=== PATIENT | female | born 1950 | race Caucasian/White ===

== ENCOUNTER 2022-03-22 20:22 | Inpatient (IN) | payer MEDICARE, OTHER ==
[~2022-03-22] VITALS: Ht 172.7 cm; Wt 63.5 kg
--- NOTE | 2022-03-22 20:53 | NUR ---
BIBDAUGHTER FOR MEDICALCLEARANCE FROM FACILITY "FOR VERBALLY AND PHYSICALLY BEING AGRESSIVE". PT AOX2/3. TOLERATING R/A WELL WITH NO RESP DISTRESS. SAFETY MEASURES IN PLACE. 1:1 SITTER AT PT'S BEDSIDE.
--- NOTE | 2022-03-22 21:00 | NUR ---
COVID SWAB COLLECTED AND SENT TO LAB
--- NOTE | 2022-03-22 21:10 | NUR ---
URINE COLLECTED AND SENT TO LAB
--- NOTE | 2022-03-22 21:25 | NUR ---
LARRY CAR OPERATOR AT PT'S BEDSIDE
[2022-03-22 21:42] LABS: BASOPHILS # (AUTO) 0.1 K/uL (0.0-0.2); BASOPHILS % (AUTO) 0.8 % (0.0-2.0); EOSINOPHILS % (AUTO) 3.9 % (0.0-6.0); HEMATOCRIT 45 % (33-45); HEMOGLOBIN 14.7 g/dL (11.5-14.8); LYMPHOCYTES # (AUTO) 1.3 K/uL (0.8-4.8); LYMPHOCYTES % (AUTO) 19.1 % (20.0-44.0); MEAN CORPUSCULAR HGB CONC 33 g/dl (31.0-36.0); MEAN CORPUSCULAR VOLUME 96 fL (82-100); MONOCYTES # (AUTO) 0.6 K/uL (0.1-1.30); MONOCYTES % (AUTO) 8.5 % (2.0-12.0); NEUTROPHILS # (AUTO) 4.5 K/uL (1.8-8.9); NEUTROPHILS % (AUTO) 67.7 % (43.0-81.0); PLATELET COUNT (AUTO) 251 K/uL (150-450); RED BLOOD CELL COUNT(AUTO) 4.68 MIL/uL (4.0-5.2); WHITE BLOOD COUNT (AUTO) 6.6 K/uL (4.3-11.0)
[2022-03-22 21:50] LABS: BILIRUBIN,URINE NEGATIVE (NEGATIVE); COLOR,URINE YELLOW (YELLOW); LEUKOCYTE ESTERASE ,URINE NEGATIVE (NEGATIVE); NITRITE, URINE NEGATIVE (NEGATIVE); PROTEIN,URINE NEGATIVE (NEGATIVE); UGLUCOSE NEGATIVE (NEGATIVE); UROBILINOGEN,URINE 0.2 EU/dL (0.2)
[2022-03-22 22:19] LABS: ALANINE AMINOTRANSFERASE 12 U/L (12-78); ALBUMIN 2.8 g/dL (3.4-5.0); ALCOHOL, BLOOD < 3 mg/dL (0-0); ALKALINE PHOSPHATASE 91 U/L (46-116); ASPARTATE AMINOTRANSFERASE 20 U/L (15-37); BILIRUBIN,DIRECT 0.1 mg/dL (0.0-0.2); BILIRUBIN,TOTAL 0.3 mg/dL (0.2-1.0); CALCIUM, SERUM 8.4 mg/dL (8.5-10.1); CARBON DIOXIDE 27 mmol/L (21-32); CHLORIDE 105 mmol/L (98-107); CREATININE 1.1 mg/dL (0.6-1.3); GLUCOSE 109 mg/dL (74-106); POTASSIUM 3.5 mmol/L (3.5-5.1); SODIUM SERUM 143 mmol/L (136-145); TOTAL PROTEIN, SERUM 6.9 g/dL (6.4-8.2); UREA NITROGEN, BLOOD 25 mg/dL (7-18)
[2022-03-22 22:30] LABS: ACETAMINOPHEN 0 ug/ml (10-30)
--- NOTE | 2022-03-23 00:11 | NUR ---
KIZZY, HYDROCHLORIC AREA SUPERVISOR PAGED FOR EVAL
--- NOTE | 2022-03-23 00:12 | NUR ---
ROOM 22OB GPS
--- NOTE | 2022-03-23 01:22 | NUR ---
REPORT GIVEN TO CHRISTIANO YAP RN FOR KIRAN
--- NOTE | 2022-03-23 02:26 | NUR ---
PT PLACED ON 5150 HOLD BY KIZZY WOOD LCSW FOR GD 03/23/22 AT 0147
--- NOTE | 2022-03-23 02:49 | NUR ---
PT TRANSFERRED TO GPS VIA HOSPITAL PROTOCOL. VSS. ALL BELONGINGS WITH PT.
--- NOTE | 2022-03-23 02:50 | NUR ---
GPS UNDERCOVER AGENT NOTE ADMITTED 71 Y/O FEMALE PATIENT FROM ER, PT IS RESIDENT OF [facility] , ADMIT TO GPS UNIT. PATIENT IS ON 5150 HOLD FOR GD. PER 5150 HOLD, UPON FACE TO FACE EVALUATION, PATIENT IS A & O X 1 FORGETFUL, CONFUSED AT TIMES, DISORGANIZED, LABILE, PT DENIES SI/HI UPON ADMISSION AND WILLING TO CONTRACT FOR SAFETY. REDIRECTABLE AT THIS TIME. UNSTEADY GAIT, FALL RISK. PT EVAL ORDERED. NO ACUTE DISTRESS NOTED. NO C/O PAIN VERBALIZED AT THIS TIME. PATIENT UNABLE TO SIGN ALL ADMISSION PAPERWORK. BS 103 MG/DL, PT REFUSED SKIN ASSESSMENT. STATES "LEAVE ME ALONE i WANT TO SLEEP". PATIENT ADVISED OF HIS HOLD AND PATIENT RIGHTS BOOKLET AND PRESCRIPTION MEDICATION GUIDE GIVEN. PATIENT BELONGINGS WERE INVENTORIED FOR [employer]. PT IS UNDER THE PSYCHIATRIC CARE OF DR. KINNEY AND [facility]. PATIENT BED IS IN LOW LOCKED POSITION, SIDE RAILS UP X 3 FOR SAFETY. VSS. BED ALARM IS ON. WILL CONTINUE TO MONITOR Q15 MINS FOR MOOD, SAFETY AND BEHAVIOR.
[2022-03-23] MEDS ORDERED: QUETIAPINE FUMARATE 25 MG TABLET PO PRN (03:00)
[2022-03-23] MEDS ORDERED: MAGNESIUM HYDROXIDE 30 ML UDC PO PRN ×2 (03:00→11:00)
[2022-03-23] MEDS ORDERED: BLOOD SUGAR DIAGNOSTIC 1 EACH STRIP IN ONE (03:00)
[2022-03-23] MEDS ORDERED: ACETAMINOPHEN 325 MG TABLET PO PRN ×2 (03:00→11:00)
[2022-03-23] MEDS ORDERED: MAG HYDROX/AL HYDROX/SIMETH 30 ML UDC PO PRN (03:00)
[2022-03-23] MEDS ORDERED: SIMV10TA98 PO (05:39)
[2022-03-23] MEDS ORDERED: LOSA25TA27 PO (05:39)
[2022-03-23] MEDS ORDERED: LEVO100T9 PO (05:39)
[2022-03-23] MEDS ORDERED: MELA1TAB47 PO (05:44)
[2022-03-23] MEDS ORDERED: AMAN100T PO (05:44)
[2022-03-23] MEDS ORDERED: ASPI-1169 PO (05:44)
[2022-03-23] MEDS ORDERED: DONE10TA11 PO (05:44)
[2022-03-23] MEDS ORDERED: MULT-754 PO (05:48)
[2022-03-23] MEDS ORDERED: CARB1TAB21 PO ×2 (05:48)
[2022-03-23] MEDS ORDERED: SERT100T12 PO (05:48)
[2022-03-23] MEDS ORDERED: CALC1TAB PO (05:53)
[2022-03-23 08:00] VITALS: BP 115/79
[2022-03-23 08:10] LABS: CREATININE 0.9 mg/dL (0.6-1.3)
[2022-03-23] MEDS ORDERED: NA P133E RC (09:01)
[2022-03-23] MEDS ORDERED: BISA10SU11 RC (09:01)
[2022-03-23] MEDS ORDERED: MAGN400O6 PO (09:01)
[2022-03-23] MEDS ORDERED: ACET-868 PO (09:01)
[2022-03-23] MEDS ORDERED: BISACODYL SUPP (10 MG) 10 MG/SUPP.RECT SUPP.RECT RC PRN (11:00)
[2022-03-23] MEDS: CARBIDOPA/LEVODOPA 25/100 MG 1 UDTAB PO SCH ×3 (12:04→22:04)
[2022-03-23 16:00] VITALS: BP 155/76
[2022-03-23 20:00] VITALS: BP 152/88
[2022-03-23] MEDS: TRAZODONE 50 MG TABLET PO SCH (22:03)
[2022-03-23] MEDS: SIMVASTATIN 10 MG TABLET PO SCH (22:04)
[2022-03-23] MEDS: ZOLPIDEM TARTRATE 5 MG TABLET PO PRN (22:34)
--- NOTE | 2022-03-23 23:45 | NUR ---
PRN AMBIEN 5 MG GIVEN VIA PO, STILL AWAKE BUT DOZING OFF. SAFETY MAINTAINS WITH STAFF AT BY SIDE.
[2022-03-24 08:00] VITALS: BP 114/87
[2022-03-24 09:23] LABS: HDL CHOLESTEROL 64 mg/dL (40-60); LDL 115 mg/dL (0-99); TRIGLYCERIDES 41 mg/dL (30-150)
[2022-03-24 10:16] LABS: CHOLESTEROL 184 mg/dL (<200)
[2022-03-24] MEDS: LEVOTHYROXINE SODIUM 100 MCG TABLET PO SCH (10:23)
[2022-03-24] MEDS: LOSARTAN POTASSIUM 25 MG TABLET PO SCH (10:24)
[2022-03-24] MEDS: ASPIRIN 81 MG TAB.CHEW PO SCH (10:24)
[2022-03-24] MEDS: CARBIDOPA/LEVODOPA 25/100 MG 1 UDTAB PO SCH ×4 (10:24→22:44)
--- NOTE | 2022-03-24 13:01 | NUR ---
Initial Discharge Plan: The pt. currently lives at [facility][[address] [facility] [phone]]. Per daughter, Elisa Root [phone] she would like for her to return to [facility]. GREG called [facility] and spoke to Mary in admissions who requested for clinicals to be faxed to them at [phone] when pt. is psychiatrically cleared for discharge and they will decide if pt. can return. GREG will continue to collaborate with psychiatrist and family for safe and proper discharge planning.
--- NOTE | 2022-03-24 13:03 | NUR ---
POINT OF CONTACT: SW called and spoke to the pt.'s daughter, Elisa Root [phone] to gather collateral information. Per Elisa the pt. has history of dementia and Parkinson disease. Elisa send this SW the POA paperwork which is only for finances. It was filed in the pt.'s chart.
[2022-03-24 16:00] VITALS: BP 100/75
--- NOTE | 2022-03-24 19:04 | NUR ---
PT SLEPT MOST OF AM SHIFT, I WAS TOLD FROM NIGHT REPORT THAT PT HAD STAYED UP ALL NIGHT IN CHAIR IN TV ROOM AND SHE WAS VERY TIRED AND SLEPT ALL DURING DAY SHIFT, COMPLIANT WITH MEDICATION WHICH I CRUSHED AND MIXED WITH APPLE SAUCE, NO ASPIRATION NOTED, NO C/O PAIN AND NO DISTRESS NOTED, BED WHEELS LOCKED AND BED LOW TO FLOOR, CONTINUED TO MONITOR AND HELP CHANGE POSITION Q 2 HOURS OR MORE PATIENT IS ABLE TO MOVE SELF ON OWN IN BED, LEO CARE PROVIDED MADE ATTEMPTS TO COLLECT A URINE SPECIMEN BUT UNABLE TO CATCH A CLEAN CATCH OF URINE WILL RELAY TASK TO ONCOMING SHIFT NURSE AT THIS TIME.
--- NOTE | 2022-03-24 19:38 | NUR ---
GPS RN OPENING NOTES: RECEIVED PATIENT LAYING IN BED. A/O X1. DISORGANIZED, DISORIENTED, CONFUSED, PASSIVE, WITHDRAWN. NO S/S OF DISTRESS. RESPIRATION EVEN AND UNLABORED WITH EQUAL RISE AND FALL OF THE CHEST, ON ROOM AIR. OFFERED FLUID AND SNACKS TOLERATED. BED IN LOWEST POSITION AND LOCKED, SIDE RAILS UP X2 FOR SAFETY. WILL CONTINUE TO MONITOR Q15 FOR MOOD, SAFETY AND BEHAVIOR.
[2022-03-24 20:00] VITALS: BP 128/63
[2022-03-24] MEDS: TRAZODONE 50 MG TABLET PO SCH (22:44)
[2022-03-24] MEDS: SIMVASTATIN 10 MG TABLET PO SCH (22:44)
--- NOTE | 2022-03-24 22:46 | NUR ---
GPS RN NOTES: TRAZODONE 25MG WASTED PER PARTIAL DOSE ORDER.
[2022-03-25] MEDS: ZOLPIDEM TARTRATE 5 MG TABLET PO PRN (01:51)
--- NOTE | 2022-03-25 01:57 | NUR ---
GPS RN NOTES: AMBIEN 5MG 1TAB GIVEN PO AT 0151 FOR SLEEP. WILL CONTINUE TO MONITOR.
[2022-03-25] MEDS: LEVOTHYROXINE SODIUM 100 MCG TABLET PO SCH (07:39)
[2022-03-25 08:00] VITALS: BP 154/76
[2022-03-25] MEDS: LOSARTAN POTASSIUM 25 MG TABLET PO SCH (08:31)
[2022-03-25] MEDS: CARBIDOPA/LEVODOPA 25/100 MG 1 UDTAB PO SCH ×4 (08:32→22:03)
[2022-03-25] MEDS: ASPIRIN 81 MG TAB.CHEW PO SCH (08:32)
[2022-03-25 16:00] VITALS: BP 138/71
[2022-03-25 21:22] VITALS: BP 106/64
[2022-03-25] MEDS: TRAZODONE 50 MG TABLET PO SCH (22:03)
[2022-03-25] MEDS: SIMVASTATIN 10 MG TABLET PO SCH (22:03)
[2022-03-26] MEDS: ZOLPIDEM TARTRATE 5 MG TABLET PO PRN (01:26)
[2022-03-26 08:00] VITALS: BP 138/81
[2022-03-26] MEDS: ASPIRIN 81 MG TAB.CHEW PO SCH (09:17)
[2022-03-26] MEDS: LOSARTAN POTASSIUM 25 MG TABLET PO SCH (09:18)
[2022-03-26] MEDS: CARBIDOPA/LEVODOPA 25/100 MG 1 UDTAB PO SCH ×4 (09:18→21:35)
[2022-03-26] MEDS: LEVOTHYROXINE SODIUM 100 MCG TABLET PO SCH (09:18)
[2022-03-26 16:00] VITALS: BP 112/66
[2022-03-26 20:15] VITALS: BP 127/81
[2022-03-26 21:03] VITALS: BP 127/81
[2022-03-26] MEDS: TRAZODONE 50 MG TABLET PO SCH (21:34)
[2022-03-26] MEDS: SIMVASTATIN 10 MG TABLET PO SCH (22:09)
[2022-03-27] MEDS ORDERED: Z GUARD REMEDY 4 OZ OINT TP PRN (07:00)
[2022-03-27 08:00] VITALS: BP 131/79
[2022-03-27] MEDS: ASPIRIN 81 MG TAB.CHEW PO SCH (08:54)
[2022-03-27] MEDS: LEVOTHYROXINE SODIUM 100 MCG TABLET PO SCH (08:54)
[2022-03-27] MEDS: CARBIDOPA/LEVODOPA 25/100 MG 1 UDTAB PO SCH ×4 (08:54→22:17)
[2022-03-27] MEDS: LOSARTAN POTASSIUM 25 MG TABLET PO SCH (08:55)
[2022-03-27] MEDS: Z GUARD REMEDY 4 OZ OINT TP SCH (08:55)
--- NOTE | 2022-03-27 09:00 | NUR ---
RN NOTE- PATIENT ASLEEP IN BED. A/O X1, FLAT AFFECT, DISORGANIZED, DISORIENTED, CONFUSED, PASSIVE, WITHDRAWN. NO S/S OF DISTRESS. NO S/S OF DISTRESS, BREATHING WITHOUT DIFFICULTY ON ROOM AIR. OFFERED FLUID AND SNACKS TOLERATED. BED IN LOWEST POSITION AND LOCKED, SIDE RAILS UP X2 FOR SAFETY. WILL CONTINUE TO MONITOR Q15 FOR MOOD, SAFETY AND BEHAVIOR.
[2022-03-27 16:00] VITALS: BP 132/79
[2022-03-27 19:50] VITALS: BP 126/54
[2022-03-27 20:40] VITALS: BP 126/54
[2022-03-27] MEDS: TRAZODONE 50 MG TABLET PO SCH (22:17)
[2022-03-27] MEDS: SIMVASTATIN 10 MG TABLET PO SCH (22:17)
[2022-03-28] MEDS: LEVOTHYROXINE SODIUM 100 MCG TABLET PO SCH (07:54)
[2022-03-28 08:00] VITALS: BP 149/76
--- NOTE | 2022-03-28 09:00 | NUR ---
RN NOTE- UNCHANGED, DISROBES OFTEN, PATIENT ASLEEP IN BED. A/O X1, FLAT AFFECT, DISORGANIZED, DISORIENTED, CONFUSED, PASSIVE, WITHDRAWN. NO S/S OF DISTRESS. NO S/S OF DISTRESS, BREATHING WITHOUT DIFFICULTY ON ROOM AIR. OFFERED FLUID AND SNACKS TOLERATED. BED IN LOWEST POSITION AND LOCKED, SIDE RAILS UP X2 FOR SAFETY. WILL CONTINUE TO MONITOR Q15 FOR MOOD, SAFETY AND BEHAVIOR.
[2022-03-28] MEDS: LOSARTAN POTASSIUM 25 MG TABLET PO SCH (09:03)
[2022-03-28] MEDS: ASPIRIN 81 MG TAB.CHEW PO SCH (09:03)
[2022-03-28] MEDS: CARBIDOPA/LEVODOPA 25/100 MG 1 UDTAB PO SCH ×4 (09:03→21:42)
[2022-03-28] MEDS: Z GUARD REMEDY 4 OZ OINT TP SCH (09:04)
[2022-03-28] MEDS: OXCARBAZEPINE 150 MG TABLET PO SCH ×2 (09:04→21:42)
[2022-03-28 16:00] VITALS: BP 122/72
--- NOTE | 2022-03-28 19:41 | NUR ---
GPS RN OPENING NOTES: RECEIVED PATIENT LAYING IN BED AWAKE, A/O X1. PATIENT APPEARS DEPRESSED, DISHEVELED, FLAT AFFECT, DISORGANIZED, DISORIENTED, PASSIVE, WITHDRAWN. PATIENT HAS NO S/S OF DISTRESS. RESPIRATION EVEN AND UNLABORED WITH EQUAL RISE AND FALL OF THE CHEST, ON ROOM AIR. OFFERED FLUID AND SNACKS TOLERATED. BED IN LOWEST POSITION AND LOCKED, SIDE RAILS UP X2 FOR SAFETY. WILL CONTINUE TO MONITOR Q15 FOR MOOD, SAFETY AND BEHAVIOR.
[2022-03-28 20:56] VITALS: BP 138/64
[2022-03-28] MEDS: TRAZODONE 50 MG TABLET PO SCH (21:41)
[2022-03-28] MEDS: SIMVASTATIN 10 MG TABLET PO SCH (21:41)
[2022-03-28] MEDS: ZOLPIDEM TARTRATE 5 MG TABLET PO PRN (22:23)
--- NOTE | 2022-03-28 22:24 | NUR ---
GPS RN NOTES: AMBIEN 5MG GIVEN PO AT 2223 FOR INSOMNIA. WILL CONTINUE TO MONITOR.
--- NOTE | 2022-03-29 07:28 | NUR ---
GPS RN CLOSING NOTES: PATIENT IS LAYING CALMLY IN BED, AWAKE, A/O X1. PATIENT PATIENT SLEPT 7HR THIS SHIFT. PATIENT HAS NO S/S OF DISTRESS AT THIS TIME. RESPIRATION EVEN AND UNLABORED WITH EQUAL RISE AND FALL OF THE CHEST ON ROOM AIR. ALL PATIENT CARE NEEDS HAVE BEEN MET ANTICIPATED. WILL CONTINUE TO MONITOR AND ENDORSE TO AM SHIFT.
--- NOTE | 2022-03-29 07:30 | NUR ---
RN OPENING NOTE PATIENT IN BED ASLEEP BU EASILY AROUSABLE, ON ROOM AIR, BREATHING UNLABORED AND NOT IN ANY FORM OF DISTRESS. ALL SAFETY PRECAUTIONS IN PLACE. WILL CONTINUE TO MONITOR.
[2022-03-29 08:00] VITALS: BP 124/72
[2022-03-29] MEDS: ASPIRIN 81 MG TAB.CHEW PO SCH (09:11)
[2022-03-29] MEDS: OXCARBAZEPINE 150 MG TABLET PO SCH ×2 (09:11→21:43)
[2022-03-29] MEDS: LOSARTAN POTASSIUM 25 MG TABLET PO SCH (09:11)
[2022-03-29] MEDS: CARBIDOPA/LEVODOPA 25/100 MG 1 UDTAB PO SCH ×4 (09:11→21:43)
[2022-03-29] MEDS: LEVOTHYROXINE SODIUM 100 MCG TABLET PO SCH (09:11)
[2022-03-29] MEDS: Z GUARD REMEDY 4 OZ OINT TP SCH (09:12)
--- NOTE | 2022-03-29 11:37 | NUR ---
Court Notification: SW contacted pt's daughter Elisa ([phone]) and left a voicemail of pt's 0795 hearing today.
--- NOTE | 2022-03-29 11:38 | NUR ---
Court Hearing: Patient's court hearing for 8290 was today and it was upheld for GD.
--- NOTE | 2022-03-29 15:52 | NUR ---
SNF Referral: SW sent clinicals to [facility] admissions , for placement at [facility]. SW sent H & P, progress notes, and medication list.
[2022-03-29 16:00] VITALS: BP 116/81
--- NOTE | 2022-03-29 18:51 | NUR ---
RN CLOSING NOTE PATIENT REMAINED STABLE THROUGHOUT SHIFT. OF THIS TIME, PATIENT IS AWAKE, ALERT AND ORIENTED X 1. BREATHING UNLABORED AND NOT IN ANY FORM OF DISTRESS. ALL HOSPITAL SAFETY PRECAUTIONS IN PLACE. WILL ENDORSE TO DIRECTOR OF ENTERPRISE ARCHITECTURE NURSE.
--- NOTE | 2022-03-29 19:37 | NUR ---
GPS RN OPENING NOTES: RECEIVED PATIENT SLEEPING IN BED, EASILY ARUOSABLE, A/O X1. FLAT AFFECT, DISORGANIZED, DISORIENTED, CONFUSED, PASSIVE, WITHDRAWN. NO S/S OF DISTRESS. RESPIRATION EVEN AND UNLABORED WITH EQUAL RISE AND FALL OF THE CHEST, ON ROOM AIR. OFFERED FLUID AND SNACKS TOLERATED. BED IN LOWEST POSITION AND LOCKED, SIDE RAILS UP X2 FOR SAFETY. WILL CONTINUE TO MONITOR Q15 FOR MOOD, SAFETY AND BEHAVIOR.
[2022-03-29 20:11] VITALS: BP 101/63
[2022-03-29] MEDS: SIMVASTATIN 10 MG TABLET PO SCH (21:43)
[2022-03-29] MEDS: TRAZODONE 50 MG TABLET PO SCH (21:44)
[2022-03-30 08:00] VITALS: BP 125/71
[2022-03-30] MEDS: OXCARBAZEPINE 150 MG TABLET PO SCH ×3 (08:13→21:34)
[2022-03-30] MEDS: LEVOTHYROXINE SODIUM 100 MCG TABLET PO SCH (08:13)
[2022-03-30] MEDS: CARBIDOPA/LEVODOPA 25/100 MG 1 UDTAB PO SCH ×4 (08:13→21:35)
[2022-03-30] MEDS: ASPIRIN 81 MG TAB.CHEW PO SCH (08:13)
[2022-03-30] MEDS: Z GUARD REMEDY 4 OZ OINT TP SCH (08:14)
[2022-03-30] MEDS: LOSARTAN POTASSIUM 25 MG TABLET PO SCH (08:17)
--- NOTE | 2022-03-30 11:43 | NUR ---
SNF Contact: SW spoke with [facility] admissions , for placement at [facility] who stated that they do not have a bed available at this time.
--- NOTE | 2022-03-30 13:14 | NUR ---
SNF Referral: GREG sent clinicals to Scar to [facility] [phone], for placement. GREG sent H & P, progress notes, and medication list.
--- NOTE | 2022-03-30 14:30 | NUR ---
SNF Contact: SW received a call from Scar dyson to [facility] ([phone]) and stated pt is accepted.
--- NOTE | 2022-03-30 14:32 | NUR ---
POINT OF CONTACT: SW called and spoke to the pt.'s daughter, Elisa Root [phone] and notified that pt is accepted at [facility]. She is agreeable of this.
[2022-03-30 16:00] VITALS: BP 148/95
--- NOTE | 2022-03-30 17:45 | NUR ---
RN-NOTES PATIENT IN BED INTERMITTENTLY SLEEPING WITH BREATHING EVEN AND NONLABORED EASILY AROUSED,A/O X1 GUARDED,NO ACUTE DISTRESS NOTED. COMPLIANT WITH MEDICATIONS. NEEDS MAXIMUM ASSIST WITH ADL'S. GOOD [facility]O CARE RENDERED. ALL NEEDS ATTENDED AND ANTICIPATED. WILL CONT. MONITORING FOR SAFETY AND BEHAVIOR. WILL ENDORSE TO INCOMING NURSE FOR CONTINUITY OF CARE.
--- NOTE | 2022-03-30 19:36 | NUR ---
GPS RN OPENING NOTES: RECEIVED PATIENT SLEEPING IN BED. NO S/S OF DISTRESS. RESPIRATION EVEN AND UNLABORED WITH EQUAL RISE AND FALL OF THE CHEST, ON ROOM AIR. OFFERED FLUID AND SNACKS TOLERATED. BED IN LOWEST POSITION AND LOCKED, SIDE RAILS UP X2 FOR SAFETY. WILL CONTINUE TO MONITOR Q15 FOR MOOD, SAFETY AND BEHAVIOR.
[2022-03-30 20:00] VITALS: BP 138/75
[2022-03-30] MEDS: SIMVASTATIN 10 MG TABLET PO SCH (21:35)
[2022-03-30] MEDS: TRAZODONE 50 MG TABLET PO SCH (21:35)
[2022-03-31 08:00] VITALS: BP 127/62
[2022-03-31] MEDS: Z GUARD REMEDY 4 OZ OINT TP SCH (09:00)
[2022-03-31] MEDS: LOSARTAN POTASSIUM 25 MG TABLET PO SCH (11:56)
[2022-03-31] MEDS: OXCARBAZEPINE 150 MG TABLET PO SCH ×3 (11:56→21:13)
[2022-03-31] MEDS: LEVOTHYROXINE SODIUM 100 MCG TABLET PO SCH (11:56)
[2022-03-31] MEDS: CARBIDOPA/LEVODOPA 25/100 MG 1 UDTAB PO SCH ×4 (11:57→21:13)
[2022-03-31] MEDS: ASPIRIN 81 MG TAB.CHEW PO SCH (11:58)
[2022-03-31 16:00] VITALS: BP 147/78
--- NOTE | 2022-03-31 18:29 | NUR ---
PT SLEPT MOST OF DAY, SHE WAS REPOSITIONED Q 2 HOUR AND MORE DUE TO PT BEING ABLE TO REPOSITION SELF, WAS COMPLIANT WITH CARE AND HAD NO S/S OF SOB, NO DISTRESS AND NO ASPIRATION NOTED DURING SHIFT, WILL CONTINUE TO MONITOR AND KEPT DRY AND CLEAN DURING AM SHIFT, BED LOW TO FLOOR, WHEELS LOCKED AND KEPT IN PLACE AT THIS TIME.
[2022-03-31 20:00] VITALS: BP 130/72
[2022-03-31] MEDS: SIMVASTATIN 10 MG TABLET PO SCH (21:14)
[2022-03-31] MEDS: TRAZODONE 50 MG TABLET PO SCH (21:14)
--- NOTE | 2022-04-01 07:33 | NUR ---
RN NOTES PT SITTING IN BED, AWAKE, NO SIGN OF PAIN OR ANY DISCOMFORT, CALM AT THIS TIME, KEPT COMFORTABLE.
[2022-04-01 08:00] VITALS: BP 142/86
--- NOTE | 2022-04-01 08:18 | NUR ---
GREG EARLY DISCHARGE ENTRY 04/03/2022Monday: Patient will be discharged to [facility] [address] [place] [address]; ([phone]). Please arrange transportation at 1PM. Silk [employer] spoke with Scar dyson at [facility] ([phone]) who stated patient will be accepted at facility today. Patients is aware and agreeable. Patient is alert and oriented x2 and is not able to plan for self-care at this time but is willing to accept care provided for her at the facility. Patient denies suicidal or homicidal ideation. Patients daughter Elisa ([phone]) is aware and agreeable with discharge plans. Patient will follow-up with (Psychiatrist) Dr. Herrmann [address] [facility], [place] [address]; ([phone]) and [address] Corado [address], [place] [address]; ([phone]). Patient presents with euthymic mood and congruent affect.
[2022-04-01] MEDS: LEVOTHYROXINE SODIUM 100 MCG TABLET PO SCH (09:22)
[2022-04-01] MEDS: OXCARBAZEPINE 150 MG TABLET PO SCH ×3 (09:22→21:31)
[2022-04-01] MEDS: LOSARTAN POTASSIUM 25 MG TABLET PO SCH (09:22)
[2022-04-01] MEDS: CARBIDOPA/LEVODOPA 25/100 MG 1 UDTAB PO SCH ×4 (09:23→21:31)
[2022-04-01] MEDS: ASPIRIN 81 MG TAB.CHEW PO SCH (09:23)
[2022-04-01] MEDS: Z GUARD REMEDY 4 OZ OINT TP SCH (09:33)
--- NOTE | 2022-04-01 10:47 | NUR ---
RN NOTES PT IN BED, RESTING, SEEN AND EXAMINED BY WOUND CARE NURSE MICK, RECOMMENDATIONS NOTED, REPOSITIONED FOR COMFORT, BOTH HELLS ELEVATED WITH PILLOWS.
--- NOTE | 2022-04-01 11:13 | NUR ---
WOUND CARE CONSULT: PT PRESENTS WITH SOME AREAS OF SKIN DISCOLORATION AND IS INCONTINENT. RECOMMENDATIONS MADE FOR SKIN PROTECTION. DISCUSSED WITH NURSING STAFF. MD IN AGREEMENT WITH PLAN OF CARE.
[2022-04-01 16:00] VITALS: BP 126/81
--- NOTE | 2022-04-01 18:21 | NUR ---
RN NOTES PT IN BED, AWAKE, ALERT TO SELF, WITH CONFUSION, ASSISTED WITH DINNER, PM MEDS GIVEN ORDERED, PM CARE RENDERED, SAFETY PRECAUTIONS OBSERVED, KEPT BED AT ITS LOWEST POSITION, ALL NEEDS ATTENDED.
--- NOTE | 2022-04-01 19:15 | NUR ---
GPS RN NOTES PATIENT IN HER ROOM RESTING IN BED COMFORTABLY. A/OX1, NO S/SX OF ACUTE DISTRESS NOTED. PATIENT REMAINS CONFUSED, DISORGANIZED, WITHDRAWN,PT REQUIRES MAXIMUM ASSISTANCE IN ADL'S. TURN AND REPOSITION PER PROTOCOL. SAFETY PRECAUTIONS IN PLACE. WILL CONTINUE TO MONITOR Q15MIN ROUNDS FOR SAFETY AND BEHAVIOR.
[2022-04-01 21:05] VITALS: BP 121/77
[2022-04-01] MEDS: SIMVASTATIN 10 MG TABLET PO SCH (21:31)
[2022-04-01] MEDS: TRAZODONE 50 MG TABLET PO SCH (21:31)
[2022-04-02] MEDS: LEVOTHYROXINE SODIUM 100 MCG TABLET PO SCH (07:58)
[2022-04-02 08:00] VITALS: BP 112/62
[2022-04-02] MEDS: OXCARBAZEPINE 150 MG TABLET PO SCH ×3 (08:26→21:44)
[2022-04-02] MEDS: LOSARTAN POTASSIUM 25 MG TABLET PO SCH (08:26)
[2022-04-02] MEDS: ASPIRIN 81 MG TAB.CHEW PO SCH (08:26)
[2022-04-02] MEDS: CARBIDOPA/LEVODOPA 25/100 MG 1 UDTAB PO SCH ×4 (08:26→21:44)
[2022-04-02] MEDS: Z GUARD REMEDY 4 OZ OINT TP SCH (08:27)
[2022-04-02 16:00] VITALS: BP 127/77
--- NOTE | 2022-04-02 17:37 | NUR ---
RN-NOTES PATIENT IN BED AWAKE,A/O X1 GUARDED,NO ACUTE DISTRESS NOTED.COMPLIANT WITH MEDICATIONS. NEEDS MAXIMUM ASSIST WITH ADL'S. GOOD LEO CARE RENDERED. ENCOURAGED AND HELP REPOSITIONED Q 2HRS. ALL NEEDS ATTENDED AND ANTICIPATED. WILL CONT. MONITORING FOR SAFETY AND BEHAVIOR.WILL ENDORSE TO INCOMING NURSE FOR CONTINUITY OF CARE.
--- NOTE | 2022-04-02 19:30 | NUR ---
GPS RN NOTE, RECEIVED PATIENT AWAKE AND IN BED, NO S/S OR COMPLAINTS OF PAIN AT THIS TIME. PATIENT IS DISPLAYING NO S/S OF APPARENT DISTRESS AT THIS TIME. PATIENT BREATHING IS UNLABORED WITH EQUAL RISE AND FALL OF THE CHEST. PATIENT IS ALERT AND ORIENTED X 1 ON ROOM AIR WITH A SPO2 96%. PATIENT IS COMPLAINT WITH MEDICATIONS, CONFUSED, CALM, AND COOPERATIVE. PATIENT DENIES SUICIDAL AND HOMICIDAL IDEATIONS AT THIS TIME. PATIENT ASSISTED WITH TURNING AND REPOSITIONING Q2HR AND PRN FOR COMFORT AND CIRCULATION. PATIENT HAS NO NEEDS AT THIS TIME. PATIENT EDUCATED ON THE USE OF THE CALL [place]. PATIENT BED SIDE RAILS UP X 2 FOR SAFETY. PATIENT BED IS LOCKED, LOW, WITH BED ALARM ON. WILL CONTINUE TO MONITOR THIS PATIENT Q15 MINUTES WITH THE HELP OF STAFF TO MAINTAIN SAFETY.
[2022-04-02 20:44] VITALS: BP 113/74
[2022-04-02] MEDS: SIMVASTATIN 10 MG TABLET PO SCH (21:44)
[2022-04-02] MEDS: TRAZODONE 50 MG TABLET PO SCH (21:45)
[2022-04-03] MEDS: LEVOTHYROXINE SODIUM 100 MCG TABLET PO SCH (07:45)
[2022-04-03 08:00] VITALS: BP 153/80
[2022-04-03] MEDS: ASPIRIN 81 MG TAB.CHEW PO SCH (09:00)
[2022-04-03 09:01] VITALS: BP 153/80
[2022-04-03] MEDS: LOSARTAN POTASSIUM 25 MG TABLET PO SCH (09:01)
[2022-04-03] MEDS: CARBIDOPA/LEVODOPA 25/100 MG 1 UDTAB PO SCH ×2 (09:01→12:30)
[2022-04-03] MEDS: OXCARBAZEPINE 150 MG TABLET PO SCH ×2 (09:01→13:32)
[2022-04-03] MEDS: Z GUARD REMEDY 4 OZ OINT TP SCH (09:38)
--- NOTE | 2022-04-03 15:01 | NUR ---
RN NOTES ALL THE VALUABLES FROM THE SAFE GIVEN TO THE DAUGHTER OF THE PATIENT, AGUSTÍN AT 1400. JANIE THE DAUGHTER SIGNED THE BELONGING PAGE.
--- NOTE | 2022-04-03 15:02 | NUR ---
RN NOTES CALLED [facility] WITH PHONE NUMBER [phone] AT 0410 AND GAVE REPORT TO BRUCE FROM THE FACILITY.
--- NOTE | 2022-04-03 15:04 | NUR ---
RN NOTES DISCHARGE PATIENT IN STABLE CONDITION WITH STABLE VITAL SIGNS. NO PAIN NOTED. NO SOB NOTED. NO DISTRESS NOTED. DAUGHTER AT THE BED SIDE. 2 MT CAME AT 1400. ALL THE DISCHARGE PAPERS GIVEN TO MT. ALL THE BELONGINGS ACCOUNTED AND SIGNED FOR BY DAUGHTER AGUSTÍN. PATIENT IS ALERT AND ORIENTED TIMES 1. PATIENT DENIES SI/HI. PATIENT CALM AND COMFORTABLE. PATIENT LEFT HOSPITAL IN STABLE CONDITION AT 1430 WITH MIKERANDREW. 2 MT TRANSFERRED THE PATIENT TO [facility]. MD AND CHARGE NURSE AWARE OF THE DISCHARGE.
== END 2022-04-03 15:30 | DRG 885 ==
LOC: ER 20:28 → GPS 03-23 00:23
PROVIDERS: ADMIT Psychiatry & Neurology Psychiatry
DX: F39 Unspecified mood [affective] disorder (principal); D68.59 Other primary thrombophilia; F02.81 Dementia in other diseases classified elsewhere, unspecified severity, with behavioral disturbance; G93.49 Other encephalopathy; F29 Unspecified psychosis not due to a substance or known physiological condition; G20 Parkinson's disease; Z85.841 Personal history of malignant neoplasm of brain; Z87.440 Personal history of urinary (tract) infections; Z91.81 History of falling; R26.9 Unspecified abnormalities of gait and mobility; E03.9 Hypothyroidism, unspecified; E78.5 Hyperlipidemia, unspecified; Z74.09 Other reduced mobility; L89.90 Pressure ulcer of unspecified site, unspecified stage; Z79.899 Other long term (current) drug therapy; Z74.01 Bed confinement status; I10 Essential (primary) hypertension
CPT/HCPCS: 36415; 80048-TC; 80061-TC; 80076-TC; 82565-TC; 82962-TC; 85025-TC; 97116-TC; 97530-TC; C9803; G0480